=== PATIENT | male | born 1975 | race Caucasian/White ===

== ENCOUNTER 2019-05-09 11:12 | Emergency (ER) | payer OTHER ==
[~2019-05-09] VITALS: Ht 190.5 cm; Wt 113.4 kg
[2019-05-09] MEDS ORDERED: AVAPRO75 MG (11:39)
[2019-05-09] MEDS ORDERED: AMOX-CLAV 875-1 EACH PO (15:16)
== END 2019-05-09 15:22 | disposition home or self-care (01) ==
LOC: ER 11:12
DX: J03.90 Acute tonsillitis, unspecified (principal)

== ENCOUNTER 2019-07-01 02:27 | Emergency (ER) | payer OTHER ==
[~2019-07-01] VITALS: Ht 190.5 cm; Wt 113.4 kg
[~2019-07-01 02:27] MED LIST: AMOX-CLAV 875-1 EACH PO; AVAPRO75 MG
[2019-07-01] MEDS ORDERED: COZAAR100 MG (02:31)
[2019-07-01] MEDS ORDERED: AUGMENTIN PO (03:24)
[2019-07-01] MEDS ORDERED: IBUPROFEN800 MG PO (03:25)
== END 2019-07-01 03:50 | disposition home or self-care (01) ==
LOC: ER 02:27
DX: H61.21 Impacted cerumen, right ear (principal); H66.91 Otitis media, unspecified, right ear

== ENCOUNTER 2019-07-27 10:16 | Emergency (ER) | payer OTHER ==
[~2019-07-27] VITALS: Ht 190.5 cm; Wt 117.5 kg
[~2019-07-27 10:16] MED LIST changes: +AUGMENTIN PO; +COZAAR100 MG; +IBUPROFEN800 MG PO
[2019-07-27] MEDS ORDERED: ATACAND16 MG (10:39)
[2019-07-27] MEDS ORDERED: KETO10TA2 PO (11:27)
== END 2019-07-27 11:49 | disposition home or self-care (01) ==
LOC: ER 10:16
DX: M94.0 Chondrocostal junction syndrome [Tietze] (principal)

== ENCOUNTER 2019-09-08 01:20 | Emergency (ER) | payer OTHER ==
[~2019-09-08] VITALS: Ht 190.5 cm; Wt 113.4 kg
[~2019-09-08 01:20] MED LIST changes: +ATACAND16 MG; +KETO10TA2 PO
[2019-09-08] MEDS ORDERED: INMODIUN (01:36)
[2019-09-08] MEDS ORDERED: INTESTINEX680 M1 PO (05:37)
[2019-09-08] MEDS ORDERED: LEVSIN/SL0.125 MG SL (05:37)
[2019-09-08] MEDS ORDERED: PEPCID AC20 MG PO (05:37)
== END 2019-09-08 05:59 | disposition home or self-care (01) ==
LOC: ER 01:20
DX: K52.89 Other specified noninfective gastroenteritis and colitis (principal)

== ENCOUNTER 2020-02-01 10:59 | Emergency (ER) | payer OTHER ==
[~2020-02-01] VITALS: Ht 190.5 cm; Wt 117.9 kg
[~2020-02-01 10:59] MED LIST changes: +INMODIUN; +INTESTINEX680 M1 PO; +LEVSIN/SL0.125 MG SL; +PEPCID AC20 MG PO
[2020-02-01] MEDS ORDERED: COZAAR25 MG PO (11:14)
== END 2020-02-01 14:46 | disposition home or self-care (01) ==
LOC: ER 10:59
DX: K52.89 Other specified noninfective gastroenteritis and colitis (principal)

== ENCOUNTER 2021-02-16 06:22 | Emergency (ER) | payer OTHER ==
[~2021-02-16] VITALS: Ht 190.5 cm; Wt 113.4 kg
[~2021-02-16 06:22] MED LIST changes: +COZAAR25 MG PO
== END 2021-02-16 11:55 | disposition home or self-care (01) ==
LOC: ER 06:22
DX: M54.50 Low back pain, unspecified (principal)

== ENCOUNTER 2021-09-01 21:45 | Emergency (ER) | payer OTHER ==
[~2021-09-01] VITALS: Ht 190.5 cm; Wt 117.5 kg
== END 2021-09-01 22:20 | disposition home or self-care (01) ==
LOC: ER 21:45
DX: H61.23 Impacted cerumen, bilateral (principal); I10 Essential (primary) hypertension